=== PATIENT | female | born 1940 | race Caucasian/White ===

== ENCOUNTER → 2017-05-11 | Outpatient (CLI) | payer MEDICARE ==
[2017-05-11 12:41] LABS: Anion Gap 12 mmol/L; Blood Urea Nitrogen 19 mg/dL (7-17); Calcium 9.2 mg/dL (8.4-10.2); Carbon Dioxide 26 mmol/L (22-30); Chloride 104 mmol/L (98-107); Glucose 156 mg/dL (74-99); Potassium 3.8 mmol/L (3.5-5.1); Sodium 142 mmol/L (137-145)
== END | disposition home or self-care (01) ==
LOC: LABWHC1 11:38
PROVIDERS: ATTEND Nurse Practitioner
DX: I10 Essential (primary) hypertension (principal)
CPT/HCPCS: 36415; 80048

== ENCOUNTER → 2017-05-11 | Outpatient (CLI) | payer MEDICARE | END | disposition home or self-care (01) | LOC: LABPAT 11:34 | PROVIDERS: ATTEND Orthopaedic Surgery | DX: Z01.812 Encounter for preprocedural laboratory examination (principal); M16.11 Unilateral primary osteoarthritis, right hip | CPT/HCPCS: 87070 ==

== ENCOUNTER 2017-05-22 07:09 | Inpatient (IN) | payer MEDICARE ==
--- NOTE | 2017-05-13 10:11 | HP ---
HISTORY AND PHYSICAL CHIEF COMPLAINT: Right hip pain. HISTORY OF PRESENT ILLNESS: The patient is a 76-year-old retired female who presents with progressive right hip pain worsening over the past 6 months. She is having groin and thigh pain with weightbearing activities. She has been limping. It is interfering with her normal function and activities. She has tried medications with only partial temporary relief. PAST MEDICAL HISTORY: Significant for type 2 diabetes, hypertension, neuropathy, and arthritis. PAST SURGICAL HISTORY: Significant for previous cholecystectomy, previous lung surgery, and hemorrhoidectomy. CURRENT MEDICATIONS: Catapres, metformin, Neurontin, Zoloft, and tramadol. ALLERGIES: She has allergies to MORPHINE. FAMILY HISTORY: Significant for heart disease. SOCIAL HISTORY: Negative for current tobacco or alcohol use. REVIEW OF SYSTEMS: Sixteen point review of systems otherwise reviewed and is noncontributory. PHYSICAL EXAMINATION: On examination, the patient is approximately 5 foot 6, 212 pounds, with a BMI of 34.22. HEENT exam is nonfocal. Neck is supple. She has passive motion right hip, flexion 80 degrees, external rotation of the hip flex 50 degrees, internal rotation 0 degrees with pain. She has approximately 1 cm shortening of the right lower extremity compared to the left. Her distal neurovascular exam appears intact in the right lower extremity. She does have a mildly antalgic gait pattern. AP and frog lateral views of the right hip obtained in the office show severe osteoarthrosis with [id number] changes. IMPRESSION: 1. Right hip severe osteoarthrosis. 2. Increased body mass index of 34.22. RECOMMENDATIONS: I talked to the patient at length regarding her treatment options. At this point, she is quite symptomatic and limited because of pain related to her osteoarthrosis. She opts to proceed with surgery. We will plan to proceed with right total hip arthroplasty. We will likely institute DVT prophylaxis postoperatively. Risks and benefits were discussed at length in layman's terms. MMODL / IJN: [id number] /
[2017-05-14 15:43] VITALS: BMI 36.6
[~2017-05-22 07:09] MED LIST: ACETAMINOPHEN TAB 500 MG TAB PO ONE; DEXAMETHASONE SOD PHOSPHATE 10 MG/ML 1 ML VIAL IV ONE; LIDOCAINE 1% 20 ML VIAL (10MG/ML) FOR IV START INTRADERMA PRN; MELOXICAM 7.5 MG TAB PO ONE; MIDAZOLAM 2 MG/2 ML VIAL IV PRN; MORPHINE SULFATE 2 MG/ML SYRINGE IV PRN; ONDANSETRON 4 MG/2 ML VIAL IVP ONE; SCOPOLAMINE 1.5MG/72HR PATCH TRANSDERM ONE; TRANEXAMIC ACID 1,000 MG in SODIUM CHLORIDE 0.9% 50 ML IVPB ONE; VANCOMYCIN 1,500 MG in SODIUM CHLORIDE 0.9% 250 ML IVPB ONE
[2017-05-22] MEDS: LACTATED RINGERS 1,000 ML IV SCH ×3 (08:40→17:36)
[2017-05-22 08:52] LABS: Glucose,Whole Blood 207 mg/dL (75-99)
[2017-05-22] MEDS ORDERED: ONDANSETRON 4 MG/2 ML VIAL ONE (09:00)
[2017-05-22] MEDS ORDERED: INSULIN ASPART 100 UNIT/ML 1 ML 10 ML VIAL SQ ONE ×2 (09:40→09:44)
[2017-05-22] MEDS ORDERED: TRANEXAMIC ACID 1,000 MG/10 ML VIAL ONE (11:17)
[2017-05-22] MEDS ORDERED: PHENYLEPHRINE-0.9% NACL SYG 1 MG/10 ML SYRINGE ONE (11:17)
[2017-05-22] MEDS ORDERED: SODIUM CHLORIDE 0.9% 100 ML BAG ONE (11:17)
[2017-05-22] MEDS ORDERED: diphenhydrAMINE 50 MG/ML 1 ML VIAL ONE (11:17)
[2017-05-22] MEDS ORDERED: PROPOFOL 10 MG/ML 20 ML VIAL IV ONE (11:17)
[2017-05-22] MEDS ORDERED: MIDAZOLAM 2 MG/2 ML VIAL ONE (11:17)
[2017-05-22] MEDS ORDERED: fentaNYL (PF) 50 MCG/ML 2 ML AMP ONE (11:17)
[2017-05-22] MEDS ORDERED: LIDOCAINE 1% INJ 10MG/ML (20 ML MDV) ONE (11:17)
[2017-05-22] MEDS ORDERED: ceFAZolin 3,000 MG in SODIUM CHLORIDE 0.9% IRRIGATIO 3,000 ML IRRIGATION ONE (11:56)
[2017-05-22] MEDS ORDERED: HYDROcodone/APAP 5-325MG 1 EACH TAB PO PRN (13:11)
[2017-05-22] MEDS ORDERED: MORPHINE SULFATE/PF 10MG/10ML VL IV PRN (13:11)
[2017-05-22] MEDS ORDERED: MORPHINE SULFATE/PF 10MG/10ML VL IVP PRN (13:11)
[2017-05-22] MEDS ORDERED: ONDANSETRON 4 MG/2 ML VIAL IVP PRN (13:11)
[2017-05-22] MEDS ORDERED: NALOXONE 0.4 MG/ML 1 ML VIAL IV PRN (13:11)
[2017-05-22] MEDS ORDERED: MAGNESIUM HYDROXIDE 2,400 MG/10 ML CUP PO PRN (13:11)
--- NOTE | 2017-05-22 13:37 | P.OP ---
Date of Procedure: 05/22/17 Preoperative Diagnosis: Right hip severe osteoarthrosis Postoperative Diagnosis: Same Procedure(s) Performed: Right total hip arthroplasty -press-fit Implants: Depuy Corail size 12 standard collared femoral stem, 32 mm +1 cobalt chrome femoral head, neutral polyethylene liner, 52 mm [place] acetabular shell Anesthesia: spinal Surgeon: Tarik Sullivan Metalworking Specialist #1: Forest Suresh Estimated Blood Loss (ml): 200 Pathology: other (Femoral head) Condition: stable Disposition: PACU Indications for Procedure: The patient is a 76-year-old female who presents with progressive right hip pain secondary to osteoarthrosis despite conservative measures. A discussion of the risks and benefits of operative intervention versus continued conservative measures was made with the patient. She opted to proceed with surgery. Operative risks to include infection, neurovascular injury, development of blood clots, possible leg length discrepancy, possible dislocation, possible component loosening and need for subsequent procedures was discussed. Informed consent was obtained. Operative Findings: As below Description of Procedure: The patient was brought to the operating room, and after induction of spinal anesthesia was placed in the lateral decubitus position. The pelvis was stabilized perpendicular to the floor with a pegboard. Bony prominences were appropriately padded. The right lower extremity was prepped and draped in normal fashion. A longitudinal incision extending approximately 15 cm was then made centered over the greater trochanter extending superiorly to level ASIS and distally in line with the femoral shaft. Skin and subcutaneous tissues were divided sharply. Electrocautery was used for hemostasis. The fascia moisés and gluteus han fascia was split in line with the skin incision. The muscle fibers were bluntly dissected proximally. A self-retaining retractor was placed. The anterior posterior margins of the gluteus medius muscles identified and the anterior two thirds was detached from the greater trochanter with electrocautery. The gluteus minimus was identified and detached in a similar fashion. A wide capsulotomy was performed. The hip was gently dislocated. The neck cut was then made approximately 1 1/2 cm above the level of the lesser trochanter at a 45 angle shaft with a sagittal saw. The head was then extracted. Attention was then paid towards preparing the acetabulum. Retractors were placed anterior and posteriorly. The remaining capsular and labral tissues debrided sharply clearly defining the acetabular margins. I began reaming with a 44 mm reamer taking care to initially medialize then at 45 of abduction and 20 of anteversion. Sequential reaming is performed up to 51 mm. A trial 52 mm acetabular shell was again inserted at 45 of abduction and 20 of anteversion. This was fully seated. There is good rim fit and stability. The final implant was inserted in the same orientation. Again there is good rim fit and stability. There was a large anterior osteophyte was removed carefully with a curved osteotome. A neutral polyethylene liner was then inserted and impacted. Care was taken to avoid any soft tissue interposition. Pulsatile lavage was utilized. Attention was then paid towards preparing the proximal femur. A box chisel was used to open the metaphyseal region. A canal finder was used to find the femoral canal. Sequential broaching was performed up to size 12 broach with the leg perpendicular floor inserted and at 15 of anteversion. The calcar mill was used to fashion the medial calcar. There was good rotational stability. A standard neck along with a 32 mm +1 trial head was placed. The hip was gently relocated. It was taken through range of motion and was felt to be stable in flexion and extension with internal and external rotation. I felt there was adequate alevism of soft tissue tension. The hip was gently dislocated. The trial components were then removed. The final size 12 collared femoral stem was again inserted in 15 of anteversion with the leg perpendicular floor. Again there was good rotational stability. The 32 mm +1 cobalt chrome femoral head was gently impacted. The hip was gently relocated. Again taken through range of motion and was felt to be stable in flexion and extension with internal and external rotation. Pulsatile lavage was again utilized. The gluteus medius and minimus tendons reattached to the greater trochanter with #2 Ethibond suture. A deep drain was placed exiting anteriorly. The fascia moisés and gluteus han fascia was closed with #2 Ethibond suture. The deep subcutaneous tissues reapproximated interrupted 0 Vicryl sutures. The superficial subcutaneous tissues reapproximated 2-0 Vicryl interrupted sutures. The skin was reapproximated with 3-0 subcuticular strata fix suture. Skin tape and adhesive was applied. A sterile dressing was applied. The patient was then awoken from sedation and transferred to recovery room in good condition. Blood loss was estimated at 200 mL. Sponge and needle counts were correct at the end the case. No complications were incurred.
[2017-05-22 13:50] LABS: Glucose,Whole Blood 137 mg/dL (75-99)
[2017-05-22] MEDS: fentaNYL (PF) 50 MCG/ML 2 ML AMP IVP ONE ×4 (14:05→15:17)
--- NOTE | 2017-05-22 14:05 | XR ---
Right hip HISTORY: Postop Single frontal view of the right hip There is an indwelling drain. Patient is status post right hip arthroplasty. There is anatomic alignm ent in this single view. IMPRESSION: Orthopedic follow-up.
[2017-05-22] MEDS ORDERED: fentaNYL (PF) 50 MCG/ML 2 ML AMP IVP ONE (15:59)
[2017-05-22 18:14] LABS: Glucose,Whole Blood 221 mg/dL (75-99)
--- NOTE | 2017-05-22 18:25 | P.CONS ---
History of Present Illness - Reason for Consult Consult date: 05/22/17 medical management - Chief Complaint s/p hip arthroplasty - History of Present Illness 76 year old female that was admitted after hip arthroplasty. Patient with history of diabetes hypertension. No chest pain no palpitations. Denies any nausea at this time. Review of Systems SYSTEM REVIEW OTHERWISE NEGATIVE EXCEPT MENTIONED IN HPI Constitutional: Denies fever, Denies weakness Ears, nose, mouth and throat: Denies sore throat, Denies vertigo Cardiovascular: Denies claudication, Denies irregular heart beat, Denies syncope Respiratory: Denies hemoptysis, Denies wheezing Gastrointestinal: Denies abdominal pain Musculoskeletal: right: hip pain Integumentary: Denies rash Neurological: Denies confusion, Denies tingling Past Medical History Past Medical History: Dementia, Diabetes Mellitus, Hyperlipidemia, Hypertension , Osteoarthritis (OA), Thyroid Disorder Additional Past Medical History / Comment(s): SOB with exertion, thyroid mass/ enlarged thyroid, has urinary incontinence issues, wears depends, Type 1 IDDM, recent fall 2 weeks ago, bruised and swollen knee. 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 History of Any Multi-Drug Resistant Organisms: None Reported Past Surgical History: Cholecystectomy, Joint Replacement, Tonsillectomy Additional Past Surgical History / Comment(s): Colonoscopy, right lung surgery, bilateral cataract surgery, hemorrhoidectomy, total left knee surgery. Past Anesthesia/Blood Transfusion Reactions: No Reported Reaction Past Psychological History: No Psychological Hx Reported Smoking Status: Former smoker Past Alcohol Use History: None Reported Additional Past Alcohol Use History / Comment(s): Smoked from age 14 to 39, smoked 3/4- 1 PPD. Past Drug Use History: None Reported - Past Family History Mother Family Medical History: Cancer Additional Family Medical History / Comment(s): Uterine, gallbladder and melanoma. Brother(s) Family Medical History: Cancer Additional Family Medical History / Comment(s): Melanoma Medications and Allergies Home Medications Medication Instructions Recorded Confirmed Type Cholecalciferol (Vitamin D3) 2,000 unit PO DAILY 05/14/17 05/22/17 History [Vitamin D3] Dicyclomine [Bentyl] 20 mg PO TID PRN 05/14/17 05/22/17 History Gabapentin 600 mg PO TID 05/14/17 05/22/17 History Hydrochlorothiazide [Hydrodiuril] 25 mg PO DAILY 05/14/17 05/22/17 History Insulin Glargine [Lantus] 30 unit SQ DAILY 05/14/17 05/22/17 History Omeprazole 20 mg PO BID PRN 05/14/17 05/22/17 History SUMAtriptan SUCCINATE [Imitrex] 25 mg PO BID PRN 05/14/17 05/22/17 History Sertraline HCl [Zoloft] 100 mg PO BID 05/14/17 05/22/17 History amLODIPine [Norvasc] 10 mg PO QAM 05/14/17 05/22/17 History cloNIDine HCL [Catapres] 0.2 mg PO BID 05/14/17 05/22/17 History metFORMIN HCL [Glucophage] 500 mg PO BID 05/14/17 05/22/17 History traMADol HCL [Ultram] 50 mg PO TID PRN 05/14/17 05/22/17 History Losartan [Cozaar] 50 mg PO DAILY 05/22/17 05/22/17 History Rivaroxaban [Xarelto] 10 mg PO DAILY #28 tab 05/22/17 Rx Allergies Allergy/AdvReac Type Severity Reaction Status Date / Time morphine Allergy Vomiting Verified 05/22/17 18:07 Physical Exam Vitals: Vital Signs Temp Pulse Pulse Resp BP BP Pulse Ox 05/22/17 17:46 97 05/22/17 16:00 94 16 152/69 96 05/22/17 15:30 91 16 134/70 98 05/22/17 15:00 87 18 142/67 98 05/22/17 14:25 83 18 142/70 98 05/22/17 14:10 90 16 137/68 98 05/22/17 13:55 81 16 114/57 99 05/22/17 13:40 78 16 106/54 97 05/22/17 13:25 97.7 F 77 20 119/56 96 05/22/17 08:16 98.2 F 86 16 137/66 96 Intake and Output 05/22/17 05/22/17 05/22/17 06:59 14:59 22:59 Intake Total 1451 400 Output Total 300 275 Balance 1151 125 Intake: IV 1451 400 Output: Urine 100 200 Estimated Blood Loss 200 75 - Constitutional General appearance: no acute distress - EENT Eyes: EOMI, PERRLA ENT: normal oropharynx - Neck Neck: no lymphadenopathy - Respiratory Respiratory: bilateral: CTA - Cardiovascular Rhythm: regular Heart sounds: normal: S1, S2 - Gastrointestinal General gastrointestinal: normal bowel sounds - Integumentary Integumentary: normal, no rash - Neurologic Neurologic: CNII-XII intact - Musculoskeletal Musculoskeletal: gait normal - Psychiatric Psychiatric: A&O x's 3 Results Labs: Abnormal Lab Results - Last 24 Hours (Table) 05/22/17 05/22/17 05/22/17 Range/Units 08:32 13:47 18:10 POC Glucose (mg/dL) 207 H 137 H 221 H (75-99) mg/dL Assessment and Plan (1) S/P hip replacement Narrative/Plan: per orthopedic surgery Current Visit: Yes Status: Acute Code(s): Z96.649 - PRESENCE OF UNSPECIFIED ARTIFICIAL HIP JOINT SNOMED Code(s): 079371140 (2) Diabetes mellitus Narrative/Plan: acck ac and hs Current Visit: Yes Status: Acute Code(s): E11.9 - TYPE 2 DIABETES MELLITUS WITHOUT COMPLICATIONS SNOMED Code(s): 40032192 (3) Hypertension Narrative/Plan: controlled continue clonidine,norvasc,cozaar,hctz Current Visit: Yes Status: Acute Code(s): I10 - ESSENTIAL (PRIMARY) HYPERTENSION SNOMED Code(s): 81398132 (4) Hyperlipidemia Narrative/Plan: stopped by her doctor secondary to liver concerns Current Visit: Yes Status: Acute Code(s): E78.5 - HYPERLIPIDEMIA, UNSPECIFIED SNOMED Code(s): 77036683
[2017-05-22] MEDS ORDERED: DICYCLOMINE 20 MG TAB PO PRN (18:27)
[2017-05-22] MEDS ORDERED: PANTOPRAZOLE 40 MG TABLET PO PRN (18:27)
[2017-05-22] MEDS: traMADol 50 MG TAB PO SCH ×2 (18:41→21:18)
[2017-05-22 20:11] LABS: Glucose,Whole Blood 373 mg/dL (75-99)
[2017-05-22] MEDS: metFORMIN 500 MG TAB PO SCH (20:25)
[2017-05-22] MEDS: SENNOSIDES-DOCUSATE SODIUM 1 EACH TAB PO SCH (20:25)
[2017-05-22] MEDS: cloNIDine HCL 0.2 MG TAB PO SCH (20:25)
[2017-05-22] MEDS: SERTRALINE 100 MG TAB PO SCH (20:25)
[2017-05-22] MEDS ORDERED: VANCOMYCIN 1,500 MG in SODIUM CHLORIDE 0.9% 250 ML IVPB ONE (21:00)
[2017-05-22] MEDS: GABAPENTIN 300 MG CAP PO SCH (21:17)
[2017-05-22] MEDS: HYDROcodone/APAP 7.5-325MG 1 EACH TAB PO PRN (22:25)
[2017-05-23] MEDS: LACTATED RINGERS 1,000 ML IV SCH (04:02)
[2017-05-23] MEDS: HYDROcodone/APAP 7.5-325MG 1 EACH TAB PO PRN ×3 (05:17→18:01)
[2017-05-23 07:11] LABS: Glucose,Whole Blood 218 mg/dL (75-99)
[2017-05-23 07:32] LABS: Basophils % (A) 0 %; Eosinophils % (A) 0 %; HCT 32.7 % (34.0-46.0); HGB 10.3 gm/dL (11.4-16.0); Lymphocytes % (A) 15 %; MCH 27.3 pg (25.0-35.0); MCHC 31.4 g/dL (31.0-37.0); MCV 86.9 fL (80.0-100.0); Mean Platelet Volume 7.9; Monocytes # (A) 0.5 k/uL (0-1.0); Monocytes % (A) 7 %; Neutrophils # (A) 5.3 k/uL (1.3-7.7); Neutrophils % (A) 77 %; Platelet Count 187 k/uL (150-450); RBC 3.76 m/uL (3.80-5.40); RDW 14.3 % (11.5-15.5); WBC 6.9 k/uL (3.8-10.6)
[2017-05-23] MEDS: SERTRALINE 100 MG TAB PO SCH ×2 (10:34→21:24)
[2017-05-23] MEDS: GABAPENTIN 300 MG CAP PO SCH ×3 (10:34→21:25)
[2017-05-23] MEDS: FAMOTIDINE 20 MG TAB PO SCH (10:35)
[2017-05-23] MEDS: RIVAROXABAN 10 MG TAB PO SCH (10:35)
[2017-05-23] MEDS: amLODIPine 10 MG TAB PO SCH (10:35)
[2017-05-23] MEDS: metFORMIN 500 MG TAB PO SCH ×2 (10:35→21:24)
[2017-05-23] MEDS: LOSARTAN 50 MG TAB PO SCH (10:35)
[2017-05-23] MEDS: cloNIDine HCL 0.2 MG TAB PO SCH ×2 (10:35→21:26)
[2017-05-23] MEDS: HYDROCHLOROTHIAZIDE 25 MG TAB PO SCH (10:36)
[2017-05-23] MEDS: traMADol 50 MG TAB PO SCH ×4 (10:36→21:25)
[2017-05-23] MEDS: INSULIN DETEMIR 100 UNIT/ML 10 ML VIAL SQ SCH (11:00)
[2017-05-23 11:43] LABS: Glucose,Whole Blood 327 mg/dL (75-99)
--- NOTE | 2017-05-23 11:51 | P.PN ---
Subjective Progress Note Date: 05/23/17 Principal diagnosis: 76 year old female that was admitted after hip arthroplasty. Patient with history of diabetes hypertension. No chest pain no palpitations. Denies any nausea at this time. Patient resting comfortably in bedside chair sitting up,Santoro still in place. Currently not having adequate pain control . Blood sugars have been elevated Objective - Vital Signs Vital signs: Vital Signs Temp 98.2 F 05/23/17 00:05 Pulse 84 05/23/17 00:05 Resp 16 05/23/17 00:05 BP 127/63 05/23/17 00:05 Pulse Ox 95 05/23/17 00:05 Intake & Output 05/22/17 05/23/17 05/23/17 18:59 06:59 18:59 Intake Total 1851 1060 Output Total 575 600 Balance 1276 460 Weight 106.141 kg Intake: IV 1851 Intake, IV Titration 360 Amount Lactated Ringers 1,000 ml 360 @ 60 mls/hr IV .[id number] [facility] Rx#:[id number] Oral 700 Output: Drainage 0 Right Hip 0 Urine 300 600 Estimated Blood Loss 275 Other: Voiding Method Indwelling Catheter Indwelling Catheter - Exam Constitutional: No acute distress, conversant, pleasant Eyes: Anicteric sclerae, moist conjunctiva, no lid-lag, PERRLA ENMT: NC/AT,Oropharynx clear, no erythema, exudates Neck:Supple, FROM, no masses, or JVD, No carotid bruits; No thyromegaly Lungs: Clear to auscultation, Clear to percussion, Normal respiratory effort, no accessory muscle use Cardiovascular: Heart regular in rate and rhythm, No murmurs, gallops, or rubs no peripheral edema Abdominal: Soft Nontender, nom distended, no guarding, no rebound or rigidity, Normoactive bowel sounds No hepatomegaly, No splenomegaly, No palpable mass No abdominal wall hernia noted Skin: Normal temperature, tone, texture, turgor, No induration No subcutaneous nodules, No rash, lesions, No ulcers Extremities:No digital cyanosis No clubbing, Pedal pulses intact and symmetrical Radial pulses intact and symmetrical Normal gait and station, No calf tenderness Psychiatric: Alert and oriented to person, place and time, Appropriate affect Intact judgement Neuro: Muscles Strength 5/5 in all 4 extremities, Sensation to light touch grossly present throughout, Cranial nerves II-XII grossly intact. No focal sensory deficits - Labs CBC & Chem 7: 05/23/17 06:47 Labs: Abnormal Lab Results - Last 24 Hours (Table) 05/22/17 05/22/17 05/22/17 Range/Units 13:47 18:10 20:08 RBC (3.80-5.40) m/uL Hgb (11.4-16.0) gm/dL Hct (34.0-46.0) % POC Glucose (mg/dL) 137 H 221 H 373 H (75-99) mg/dL 05/23/17 05/23/17 05/23/17 Range/Units 06:47 07:00 11:41 RBC 3.76 L (3.80-5.40) m/uL Hgb 10.3 L (11.4-16.0) gm/dL Hct 32.7 L (34.0-46.0) % POC Glucose (mg/dL) 218 H 327 H (75-99) mg/dL Assessment and Plan (1) Diabetes mellitus Narrative/Plan: * Blood sugars have been elevated we'll initiate sliding scale coverage * A1c still pending * Continue basal Levemir dose along with metformin Current Visit: Yes Status: Acute Code(s): E11.9 - TYPE 2 DIABETES MELLITUS WITHOUT COMPLICATIONS SNOMED Code(s): 57786375 (2) Hyperlipidemia Current Visit: Yes Status: Acute Code(s): E78.5 - HYPERLIPIDEMIA, UNSPECIFIED SNOMED Code(s): 45443469 (3) Hypertension Narrative/Plan: * Blood pressure stable at goal continue current regimen Current Visit: Yes Status: Acute Code(s): I10 - ESSENTIAL (PRIMARY) HYPERTENSION SNOMED Code(s): 32196467 (4) S/P hip replacement Narrative/Plan: * Orthopedic surgery following * Defer pain management to primary team Current Visit: Yes Status: Acute Code(s): Z96.649 - PRESENCE OF UNSPECIFIED ARTIFICIAL HIP JOINT SNOMED Code(s): 686893374
--- NOTE | 2017-05-23 12:18 | P.PN ---
Subjective Progress Note Date: 05/23/17 Principal diagnosis: Status post right total hip arthroplasty Patient is seen today resting in her hospital chair, her son is present at bedside. She did have some increase in pain this morning, we adjusted the medication slightly. She has ambulated with therapy minimally. Urinary catheter is to be discontinued today. She denies any headaches, lightheadedness , chest pain or shortness of breath. Objective - Vital Signs Vital signs: Vital Signs Temp 99.2 F 05/23/17 07:00 Pulse 94 05/23/17 07:00 Resp 16 05/23/17 07:00 BP 114/67 05/23/17 07:00 Pulse Ox 94 L 05/23/17 07:00 Intake & Output 05/22/17 05/23/17 05/23/17 18:59 06:59 18:59 Intake Total 1851 1060 Output Total 575 700 Balance 1276 360 Weight 106.141 kg Intake: IV 1851 Intake, IV Titration 360 Amount Lactated Ringers 1,000 ml 360 @ 60 mls/hr IV .[id number] [facility] Rx#:[id number] Oral 700 Output: Drainage 0 100 Right Hip 0 100 Urine 300 600 Estimated Blood Loss 275 Other: Voiding Method Indwelling Catheter Indwelling Catheter Indwelling Catheter - Exam Right lower extremity: Incision is clean, dry, and intact. The prineo tape is in good condition. There is minimal soft tissue swelling and ecchymosis surrounding the medial and lateral aspects of the incision. Calf is soft, no tenderness with palpation. Plantar flexion, dorsiflexion, EHL, FHL are intact. Sensory exam to light touch throughout the extremity is intact, dorsal pedis pulses 2+. - Labs CBC & Chem 7: 05/23/17 06:47 Labs: Abnormal Lab Results - Last 24 Hours (Table) 05/22/17 05/22/17 05/22/17 Range/Units 13:47 18:10 20:08 RBC (3.80-5.40) m/uL Hgb (11.4-16.0) gm/dL Hct (34.0-46.0) % POC Glucose (mg/dL) 137 H 221 H 373 H (75-99) mg/dL 05/23/17 05/23/17 05/23/17 Range/Units 06:47 07:00 11:41 RBC 3.76 L (3.80-5.40) m/uL Hgb 10.3 L (11.4-16.0) gm/dL Hct 32.7 L (34.0-46.0) % POC Glucose (mg/dL) 218 H 327 H (75-99) mg/dL Assessment and Plan Plan: Assessment: 1. Postop day 1 status post right total hip arthroplasty Plan: 1. Pain control, continue supportive oral medication 2. GI and DVT prophylaxis, continue Xarelto 10 mg 3. Daily therapy 4. Daily dressing changes/ice and elevate 5 medical recommendations 6. Discharge planning: Patient will likely be discharged tomorrow Time with Patient: Less than 30
[2017-05-23 12:57] LABS: Hemoglobin A1C 7.6 % (4.0-6.0)
[2017-05-23] MEDS: INSULIN ASPART 100 UNIT/ML 1 ML 10 ML VIAL SQ SCH ×3 (13:07→21:25)
[2017-05-23] MEDS ORDERED: MORPHINE ORAL SOLN 10 MG/5 ML CUP PO PRN ×2 (13:25→13:26)
[2017-05-23 17:02] LABS: Glucose,Whole Blood 153 mg/dL (75-99)
[2017-05-23 20:28] LABS: Glucose,Whole Blood 226 mg/dL (75-99)
[2017-05-23] MEDS: SENNOSIDES-DOCUSATE SODIUM 1 EACH TAB PO SCH (21:24)
[2017-05-24] MEDS: HYDROcodone/APAP 7.5-325MG 1 EACH TAB PO PRN ×2 (00:10→07:30)
[2017-05-24 07:05] LABS: Glucose,Whole Blood 185 mg/dL (75-99)
[2017-05-24 07:25] VITALS: BP 115/61; PULSE 82; RESP 14; TEMP 98.2
[2017-05-24] MEDS: INSULIN ASPART 100 UNIT/ML 1 ML 10 ML VIAL SQ SCH ×2 (07:29→12:56)
[2017-05-24 08:01] LABS: Basophils % (A) 0 %; Eosinophils # (A) 0.1 k/uL (0-0.7); Eosinophils % (A) 1 %; Lymphocytes % (A) 32 %; MCH 28.4 pg (25.0-35.0); MCHC 33.4 g/dL (31.0-37.0); MCV 84.9 fL (80.0-100.0); Mean Platelet Volume 7.6; Monocytes # (A) 0.4 k/uL (0-1.0); Monocytes % (A) 7 %; Neutrophils # (A) 3.5 k/uL (1.3-7.7); Neutrophils % (A) 57 %; Platelet Count 187 k/uL (150-450); RBC 3.54 m/uL (3.80-5.40); RDW 14.4 % (11.5-15.5); WBC 6.2 k/uL (3.8-10.6)
[2017-05-24] MEDS: LACTATED RINGERS 1,000 ML IV SCH ×2 (09:00→09:55)
[2017-05-24] MEDS: LOSARTAN 50 MG TAB PO SCH (09:12)
[2017-05-24] MEDS: FAMOTIDINE 20 MG TAB PO SCH (09:12)
[2017-05-24] MEDS: cloNIDine HCL 0.2 MG TAB PO SCH (09:12)
[2017-05-24] MEDS: HYDROCHLOROTHIAZIDE 25 MG TAB PO SCH (09:12)
[2017-05-24] MEDS: amLODIPine 10 MG TAB PO SCH (09:12)
[2017-05-24] MEDS: GABAPENTIN 300 MG CAP PO SCH (09:12)
[2017-05-24] MEDS: RIVAROXABAN 10 MG TAB PO SCH (09:13)
[2017-05-24] MEDS: SERTRALINE 100 MG TAB PO SCH (09:13)
[2017-05-24] MEDS: metFORMIN 500 MG TAB PO SCH (09:13)
[2017-05-24] MEDS: INSULIN DETEMIR 100 UNIT/ML 10 ML VIAL SQ SCH (09:15)
[2017-05-24] MEDS: traMADol 50 MG TAB PO SCH ×2 (09:15→12:56)
[2017-05-24 11:43] LABS: Glucose,Whole Blood 359 mg/dL (75-99)
--- NOTE | 2017-05-24 12:00 | P.PN ---
Subjective Principal diagnosis: 76 year old female that was admitted after hip arthroplasty. Patient with history of diabetes hypertension. No chest pain no palpitations. Denies any nausea at this time. Patient resting comfortably in bedside chair sitting up,Santoro still in place. Currently having adequate pain control. Blood sugars have been much improved since being on sliding scale coverage Objective - Vital Signs Vital signs: Vital Signs Temp 98.2 F 05/24/17 07:00 Pulse 82 05/24/17 07:00 Resp 14 05/24/17 07:00 BP 115/61 05/24/17 07:00 Pulse Ox 94 L 05/24/17 01:03 Intake & Output 05/23/17 05/24/17 05/24/17 18:59 06:59 18:59 Intake Total 500 1940 Output Total 1500 Balance -1000 1940 Intake: Oral 500 1940 Output: Urine 1500 Uretheral (Santoro) 1500 Other: Voiding Method Indwelling Catheter Toilet # Voids 3 - Exam Constitutional: No acute distress, conversant, pleasant Eyes: Anicteric sclerae, moist conjunctiva, no lid-lag, PERRLA ENMT: NC/AT,Oropharynx clear, no erythema, exudates Neck:Supple, FROM, no masses, or JVD, No carotid bruits; No thyromegaly Lungs: Clear to auscultation, Clear to percussion, Normal respiratory effort, no accessory muscle use Cardiovascular: Heart regular in rate and rhythm, No murmurs, gallops, or rubs no peripheral edema Abdominal: Soft Nontender, nom distended, no guarding, no rebound or rigidity, Normoactive bowel sounds No hepatomegaly, No splenomegaly, No palpable mass No abdominal wall hernia noted Skin: Normal temperature, tone, texture, turgor, No induration No subcutaneous nodules, No rash, lesions, No ulcers Extremities:No digital cyanosis No clubbing, Pedal pulses intact and symmetrical Radial pulses intact and symmetrical Normal gait and station, No calf tenderness Psychiatric: Alert and oriented to person, place and time, Appropriate affect Intact judgement Neuro: Muscles Strength 5/5 in all 4 extremities, Sensation to light touch grossly present throughout, Cranial nerves II-XII grossly intact. No focal sensory deficits - Labs CBC & Chem 7: 05/24/17 07:25 Labs: Abnormal Lab Results - Last 24 Hours (Table) 0305/23/17 05/23/17 Range/Units 06:47 16:54 20:27 RBC (3.80-5.40) m/uL Hgb (11.4-16.0) gm/dL Hct (34.0-46.0) % POC Glucose (mg/dL) 153 H 226 H (75-99) mg/dL Hemoglobin A1c 7.6 H (4.0-6.0) % 05/24/17 05/24/17 05/24/17 Range/Units 06:54 07:25 11:34 RBC 3.54 L (3.80-5.40) m/uL Hgb 10.0 L (11.4-16.0) gm/dL Hct 30.0 L (34.0-46.0) % POC Glucose (mg/dL) 185 H 359 H (75-99) mg/dL Hemoglobin A1c (4.0-6.0) % Assessment and Plan (1) Diabetes mellitus Narrative/Plan: * Blood sugars have been improved * A1c 7.6 * Continue basal Levemir dose along with metformin Current Visit: Yes Status: Acute Code(s): E11.9 - TYPE 2 DIABETES MELLITUS WITHOUT COMPLICATIONS SNOMED Code(s): 20500816 (2) Hyperlipidemia Current Visit: Yes Status: Acute Code(s): E78.5 - HYPERLIPIDEMIA, UNSPECIFIED SNOMED Code(s): 11412413 (3) Hypertension Narrative/Plan: * Blood pressure stable at goal continue current regimen Current Visit: Yes Status: Acute Code(s): I10 - ESSENTIAL (PRIMARY) HYPERTENSION SNOMED Code(s): 18672083 (4) S/P hip replacement Narrative/Plan: * Orthopedic surgery following * Defer pain management to primary team Current Visit: Yes Status: Acute Code(s): Z96.649 - PRESENCE OF UNSPECIFIED ARTIFICIAL HIP JOINT SNOMED Code(s): 425715523 Plan: Patient is stable for discharge today follow-up with her PCP
--- NOTE | 2017-05-24 12:33 | P.PN ---
Subjective Progress Note Date: 05/24/17 Principal diagnosis: Status post right total hip arthroplasty Patient is seen today resting in her hospital chair. She denies any headaches, lightheadedness, chest pain or shortness of breath. Objective - Vital Signs Vital signs: Vital Signs Temp 98.2 F 05/24/17 07:00 Pulse 82 05/24/17 07:00 Resp 14 05/24/17 07:00 BP 115/61 05/24/17 07:00 Pulse Ox 94 L 05/24/17 01:03 Intake & Output 05/23/17 05/24/17 05/24/17 18:59 06:59 18:59 Intake Total 500 1940 Output Total 1500 Balance -1000 1940 Intake: Oral 500 1940 Output: Urine 1500 Uretheral (Santoro) 1500 Other: Voiding Method Indwelling Catheter Toilet # Voids 3 - Exam Right lower extremity: Incision is clean, dry, and intact. The prineo tape is in good condition. There is minimal soft tissue swelling and ecchymosis surrounding the medial and lateral aspects of the incision. Calf is soft, no tenderness with palpation. Plantar flexion, dorsiflexion, EHL, FHL are intact. Sensory exam to light touch throughout the extremity is intact, dorsal pedis pulses 2+. - Labs CBC & Chem 7: 05/24/17 07:25 Labs: Abnormal Lab Results - Last 24 Hours (Table) 05/23/17 05/23/17 05/23/17 Range/Units 06:47 16:54 20:27 RBC (3.80-5.40) m/uL Hgb (11.4-16.0) gm/dL Hct (34.0-46.0) % POC Glucose (mg/dL) 153 H 226 H (75-99) mg/dL Hemoglobin A1c 7.6 H (4.0-6.0) % 05/24/17 05/24/17 05/24/17 Range/Units 06:54 07:25 11:34 RBC 3.54 L (3.80-5.40) m/uL Hgb 10.0 L (11.4-16.0) gm/dL Hct 30.0 L (34.0-46.0) % POC Glucose (mg/dL) 185 H 359 H (75-99) mg/dL Hemoglobin A1c (4.0-6.0) % Assessment and Plan Plan: Assessment: 1. Postop day #2 status post right total hip arthroplasty Plan: 1. Pain control, continue supportive oral medication 2. GI and DVT prophylaxis, continue Xarelto 10 mg 3. Daily therapy 4. Daily dressing changes/ice and elevate 5 medical recommendations 6. Discharge planning: Patient will likely be discharged today Time with Patient: Less than 30
--- NOTE | 2017-05-24 12:39 | P.DS ---
Providers Date of admission: 05/22/17 07:09 Expected date of discharge: 05/24/17 Attending physician: Tarik Sullivan Consults: 05/22/17 13:11 Consult Physician Routine Consulting Provider: Beltran Caban Consult Reason/Comments: medical management Do you want consulting provider notified?: Yes Primary care physician: John Redman Hospital Course: Date of admission: 05/22/2017 Date of discharge: 05/24/2018 Admission diagnosis: Status post right total hip arthroplasty Discharge diagnosis: Same Attending physician: Dr. Sullivan Surgical procedures: Right total hip arthroplasty Brief history: Patient is a 76-year-old female with a history of progressive primary right hip osteoarthritis. At this point patient has failed conservative treatment measures and has opted to proceed with a elective right total hip arthroplasty. Hospital course: Details of patient's surgery can be found in operative report. Patient tolerated the procedure well and was subsequently transported to orthopedic floor. Patient's orthopeidc and medical care was provided daily. Patient had daily laboratory tests performed for evaluation of overall blood counts. Patient had daily physical therapy to include strengthening range of motion as well as education with walker ambulation. Patient had daily CPM usage as part of their physical therapy program. Patient was treated with Xarelto for their postoperative DVT prophylaxis during their inpatient stay. Patient was noted to have a relatively uneventful postoperative course. Patient reported satisfactory pain control with oral pain medications by postoperative day 0. Patient showed satisfactory progress with physical therapy. Patient moved steadily through the program and had no difficulty meeting the goals by postoperative day 2. Given patient's otherwise satisfactory course and having met physical therapy goals, plan is to discharge patient home on postoperative day 2. Discharge condition/disposition: Patient will be discharged home in stable condition. Discharge medications: Instructions are given on resumption of patient's normal daily medications per primary care recommendation, in addition patient will be prescribed [place] 7.5 mg/325 mg, Colace 100 mg, Xarelto 10 mg. Discharge instructions: 1. Wound care and infection precautions, keep incision dry and covered while showering, no lotions, creams, moisturizers. No soaking, tubs, pools, hottubs. Do not scrub over the incision. 2. Weight-bear as tolerated with walker / cane until follow-up. 3. Ice and elevate when necessary. Do not exceed 20 minutes per hour with ice pack. 4. Utilize compression sleeve until seen at first follow up appointment. 5. Visiting nursing care. 6. Home physical therapy. 7. Pain meds and anticoagulants per prescription. 8. Pain medication has potential to cause constipation. Increase oral fluid and fiber intake. Contact primary care provider if you have not had a bowel movement within 48 hours after discharge 9. No anti-inflammatory medication until discussed at first post operative visit, this including Motrin, Aleve, Mobic, Diclofenac. 10. Follow up in office at 2 weeks postop with Cullen Suresh PA-C 11. Follow up with your primary care doctor 7-10 days after discharge. 12. Contact [facility] with any questions, . Procedures: Right total hip arthroplasty Patient Condition at Discharge: Good Plan - Discharge Summary Discharge Rx Participant: Yes New Discharge Prescriptions: New Rivaroxaban [Xarelto] 10 mg PO DAILY #28 tab Docusate [Colace] 100 mg PO DAILY #30 capsule HYDROcodone/APAP 7.5-325MG [[place] 7.5] 1 - 2 each PO Q6HR PRN #60 tab PRN Reason: Pain No Action traMADol HCL [Ultram] 50 mg PO TID PRN PRN Reason: Pain Sertraline HCl [Zoloft] 100 mg PO BID metFORMIN HCL [Glucophage] 500 mg PO BID Insulin Glargine [Lantus] 30 unit SQ DAILY Hydrochlorothiazide [Hydrodiuril] 25 mg PO DAILY Gabapentin 600 mg PO TID Dicyclomine [Bentyl] 20 mg PO TID PRN PRN Reason: Spasms cloNIDine HCL [Catapres] 0.2 mg PO BID amLODIPine [Norvasc] 10 mg PO QAM SUMAtriptan SUCCINATE [Imitrex] 25 mg PO BID PRN PRN Reason: Migraine Headache Omeprazole 20 mg PO BID PRN PRN Reason: Indigestion Cholecalciferol (Vitamin D3) [Vitamin D3] 2,000 unit PO DAILY Losartan [Cozaar] 50 mg PO DAILY Discharge Medication List Cholecalciferol (Vitamin D3) [Vitamin D3] 2,000 unit PO DAILY 05/14/17 [History] Dicyclomine [Bentyl] 20 mg PO TID PRN 05/14/17 [History] Gabapentin 600 mg PO TID 05/14/17 [History] Hydrochlorothiazide [Hydrodiuril] 25 mg PO DAILY 05/14/17 [History] Insulin Glargine [Lantus] 30 unit SQ DAILY 05/14/17 [History] Omeprazole 20 mg PO BID PRN 05/14/17 [History] SUMAtriptan SUCCINATE [Imitrex] 25 mg PO BID PRN 05/14/17 [History] Sertraline HCl [Zoloft] 100 mg PO BID 05/14/17 [History] amLODIPine [Norvasc] 10 mg PO QAM 05/14/17 [History] cloNIDine HCL [Catapres] 0.2 mg PO BID 05/14/17 [History] metFORMIN HCL [Glucophage] 500 mg PO BID 05/14/17 [History] traMADol HCL [Ultram] 50 mg PO TID PRN 05/14/17 [History] Losartan [Cozaar] 50 mg PO DAILY 05/22/17 [History] Rivaroxaban [Xarelto] 10 mg PO DAILY #28 tab 05/22/17 [Rx] Docusate [Colace] 100 mg PO DAILY #30 capsule 05/24/17 [Rx] HYDROcodone/APAP 7.5-325MG [[place] 7.5] 1 - 2 each PO Q6HR PRN #60 tab 05/24/17 [ Rx] Follow up Appointment(s)/Referral(s): Forest Suresh PAC [PHYSICIAN [employer]] - 06/08/17 1:30 pm John Redman MD [Primary Care Provider] - 05/31/17 10:15 am Activity/Diet/Wound Care/Special Instructions: Orthopedic Discharge Instructions: 1. Wound care and infection precautions, keep incision dry and covered while showering, no lotions, creams, moisturizers. No soaking, pools, hot tubs. Do not scrub over incision. 2. Weight-bear with walker / cane until follow-up. 3. Ice and elevate when necessary. Do not exceed 20 minutes per hour with ice pack. 4. Utilize compression sleeve until seen at first follow up appointment. 5. Visiting nursing care. 6. Home physical therapy 7. Pain meds and anticoagulants per prescription. 8. Pain medication has potential to cause constipation. Increase oral fluid and fiber intake. Contact primary care provider if you have not had a bowel movement within 48 hours after discharge. 9. No anti-inflammatory medication until discussed at first post operative visit, this including Motrin, Aleve, Mobic, Diclofenac 10. Follow up in office at 2 weeks postop with Cullen Suresh PA-C 11. Follow up with your primary care doctor 7-10 days after discharge. 12. Contact [facility] with any questions, . Discharge Disposition: HOME WITH HOME HEALTH SERVICES
== END 2017-05-24 15:35 | disposition home health service (06) | DRG 470 ==
LOC: 2ORMAIN 07:09 → 3SUR 16:30
PROVIDERS: ADMIT Orthopaedic Surgery; ATTEND Orthopaedic Surgery
PROC: 0SR902A Replacement of Right Hip Joint with Metal on Polyethylene Synthetic Substitute, Uncemented, Open Approach (ICD-10-PCS; principal; 2017-05-22 10:50)
DX: M16.11 Unilateral primary osteoarthritis, right hip (principal); E11.40 Type 2 diabetes mellitus with diabetic neuropathy, unspecified; E11.9 Type 2 diabetes mellitus without complications; F03.90 Unspecified dementia, unspecified severity, without behavioral disturbance, psychotic disturbance, mood disturbance, and anxiety; E04.1 Nontoxic single thyroid nodule; E78.2 Mixed hyperlipidemia; I10 Essential (primary) hypertension; R32 Unspecified urinary incontinence; G43.909 Migraine, unspecified, not intractable, without status migrainosus; E55.9 Vitamin D deficiency, unspecified; K21.9 Gastro-esophageal reflux disease without esophagitis; Z79.899 Other long term (current) drug therapy; Z79.4 Long term (current) use of insulin; Z79.01 Long term (current) use of anticoagulants; Z90.49 Acquired absence of other specified parts of digestive tract; Z87.891 Personal history of nicotine dependence; Z91.81 History of falling; Z88.5 Allergy status to narcotic agent; Z90.2 Acquired absence of lung [part of]; Z98.42 Cataract extraction status, left eye; Z98.41 Cataract extraction status, right eye; Z82.49 Family history of ischemic heart disease and other diseases of the circulatory system
CPT/HCPCS: 36415; 73501; 83036; 85025; 86850; 86900; 86901; 88300; 94760